=== PATIENT | female | born 1990 ===

== ENCOUNTER 2019-03-29 12:08 | Inpatient (IN) | payer BC ==
[2019-03-29] MEDS ORDERED: Ondansetron 4 MG/2 ML SDV IVPUSH ONE (12:35)
[2019-03-29] MEDS ORDERED: Sodium Chloride 0.9% 1,000 ML IV ONE ×2 (12:35→16:20)
[2019-03-29] MEDS ORDERED: Ketorolac 30 MG/ML SDV IVPUSH ONE (12:35)
--- NOTE | 2019-03-29 12:40 | EDM.PDOC ---
ED HPI GENERAL MEDICAL PROBLEM - General Chief Complaint: Fever Stated Complaint: FEVER Time Seen by Provider: 03/29/19 12:21 Source of Information: Reports: Patient History Limitations: Reports: No Limitations - History of Present Illness INITIAL COMMENTS - FREE TEXT/NARRATIVE: HISTORY AND PHYSICAL: History of present illness: Patient is a 28-year-old female presents to the ED today with concern of nausea , vomiting, and fevers since last night. Patient states she checked her temperature last night with the highest being 103 with an oral Patient states she's also had more constipation and feels like she is not able to have a full bowel movement. Patient states she still not been a few times today and has not tried to eat due to the nausea. Patient states she has a history once of having a kidney infection but her symptoms today do not feel like that. Patient denies any other health history or any other symptoms or concerns. Patient states she last took a dose of Tylenol a few hours ago. Patient denies chest pain, shortness of breath, or cough. Denies headache, neck stiff ness, change in vision, syncope, or near syncope. Denies dysuria. Has not noted any blood in urine or stool. Review of systems: As per history of present illness and below otherwise all systems reviewed and negative. Past medical history: As per history of present illness and as reviewed below otherwise noncontributory. Surgical history: As per history of present illness and as reviewed below otherwise noncontributory. Social history: See social history for further information Family history: As per history of present illness and as reviewed below otherwise noncontributory. Physical exam: General: Patient is alert, oriented, and in no acute distress. Patient sitting comfortably on exam table. HEENT: Atraumatic, normocephalic, pupils equal and reactive bilaterally, negative for conjunctival pallor or scleral icterus, mucous membranes moist, TMs normal bilaterally, throat clear, neck supple, nontender, trachea midline. No drooling or trismus noted. No meningeal signs. No hot potato voice noted. Lungs: Clear to auscultation, breath sounds equal bilaterally, chest nontender. Heart: Tachycardic. S1S2, regular rate and rhythm without overt murmur Abdomen: Soft, nondistended. Moderate pain with palpation of lower abdomen without guarding or rebound. Negative for masses or hepatosplenomegaly. Negative for costovertebral tenderness. Pelvis: Stable nontender. Genitourinary: Deferred. Rectal: Deferred. Skin: Intact, warm, dry. No lesions or rashes noted. Extremities: Atraumatic, negative for cords or calf pain. Neurovascular unremarkable. Neuro: Awake, alert, oriented. Cranial nerves II through XII unremarkable. Cerebellum unremarkable. Motor and sensory unremarkable throughout. Exam nonfocal. Notes: Dr. Morrow consulted on patient and will admit to observation. Voices understanding and is agreeable to plan of care. Denies any further questions or concerns at this time. Diagnostics: CBC, CMP, UA, chest x-ray, urine hCG, influenza, strep, abdominal pelvic CT, lactate, blood cultures x 2 Therapeutics: Saline, Zofran, Toradol, Rocephin Impression: Acute pyelonephritis Plan: 1. Admit to observation to Dr. Morrow. Definitive disposition and diagnosis as appropriate pending reevaluation and review of above. Duration: Colic low back Pain Score (Numeric/FACES): 2 - Related Data Allergies Allergy/AdvReac Type Severity Reaction Status Date / Time No Known Allergies Allergy Verified 03/29/19 12:19 Home Meds: Home Meds Albuterol Sulfate [Albuterol Sulfate Hfa] 03/29/19 [History] Social & Family History - Family History Family Medical History: Noncontributory - Tobacco Use Smoking Status *Q: Never Smoker - Recreational Drug Use Recreational Drug Use: No ED ROS GENERAL - Review of Systems Review Of Systems: ROS reveals no pertinent complaints other than HPI. ED EXAM, GENERAL - Physical Exam Exam: See Below (See dictation) Course - Vital Signs Last Recorded V/S: Last Vital Signs Temp 100.2 F 03/29/19 12:20 Pulse 137 H 03/29/19 12:20 Resp 16 03/29/19 12:20 BP 143/86 H 03/29/19 12:20 Pulse Ox 96 03/29/19 12:20 - Orders/Labs/Meds Orders: Active Orders 24 hr Category Date Time Status Admission Status [Patient Status] [ADT] Stat ADT 03/29/19 14:55 Ordered Chest 1V Frontal [CR] Stat Exams 03/29/19 12:35 Taken CULTURE BLOOD [BC] Stat Lab 03/29/19 14:05 Received CULTURE BLOOD [BC] Stat Lab 03/29/19 14:30 Received CULTURE STREP A CONFIRMATION [RM] Stat Lab 03/29/19 12:30 Results CULTURE URINE [RM] Stat Lab 03/29/19 12:20 Received LACTATE WITH REFLEX [BG] Stat Lab 03/29/19 13:00 Ordered STREP SCRN A RAPID W CULT CONF [RM] Stat Lab 03/29/19 12:30 Results Blood Culture x2 Reflex Set [OM.PC] Stat Oth 03/29/19 13:00 Ordered Labs: Laboratory Tests 03/29/19 03/29/19 03/29/19 Range/Units 12:20 12:20 12:39 WBC 22.88 H (4.0-11.0) K/uL RBC 4.85 (4.30-5.90) M/uL Hgb 14.7 (12.0-16.0) g/dL Hct 42.7 (36.0-46.0) % MCV 88.0 (80.0-98.0) fL MCH 30.3 (27.0-32.0) pg MCHC 34.4 (31.0-37.0) g/dL RDW Std Deviation 41.1 (28.0-62.0) fl RDW Coeff of Trace 13 (11.0-15.0) % Plt Count 280 (150-400) K/uL MPV 9.20 (7.40-12.00) fL Neut % (Auto) 86.7 H (48.0-80.0) % Lymph % (Auto) 3.6 L (16.0-40.0) % [place] % (Auto) 9.7 (0.0-15.0) % Eos % (Auto) 0.0 (0.0-7.0) % Baso % (Auto) 0.0 (0.0-1.5) % Neut # (Auto) 19.8 H (1.4-5.7) K/uL Lymph # (Auto) 0.8 (0.6-2.4) K/uL [place] # (Auto) 2.2 H (0.0-0.8) K/uL Eos # (Auto) 0.0 (0.0-0.7) K/uL Baso # (Auto) 0.0 (0.0-0.1) K/uL Nucleated RBC % 0.0 /100WBC Nucleated RBCs # 0 K/uL Sodium (136-145) mmol/L Potassium (3.5-5.1) mmol/L Chloride (98-107) mmol/L Carbon Dioxide (21.0-32.0) mmol/L BUN (7.0-18.0) mg/dL Creatinine (0.6-1.0) mg/dL Est Cr Clr Drug Dosing mL/min Estimated GFR (MDRD) ml/min Glucose (74-106) mg/dL Calcium (8.5-10.1) mg/dL Total Bilirubin (0.2-1.0) mg/dL AST (15-37) IU/L ALT (14-63) IU/L Alkaline Phosphatase (46-116) U/L Total Protein (6.4-8.2) g/dL Albumin (3.4-5.0) g/dL Globulin (2.6-4.0) g/dL Albumin/Globulin Ratio (0.9-1.6) Urine Color YELLOW Urine Appearance CLEAR Urine pH 7.0 (5.0-8.0) Ur Specific [place] 1.020 (1.001-1.035) Urine Protein 30 H (NEGATIVE) mg/dL Urine Glucose (UA) NEGATIVE (NEGATIVE) mg/dL Urine Ketones NEGATIVE (NEGATIVE) mg/dL Urine Occult Blood MODERATE H (NEGATIVE) Urine Nitrite NEGATIVE (NEGATIVE) Urine Bilirubin NEGATIVE (NEGATIVE) Urine Urobilinogen 0.2 (<2.0) EU/dL Ur Leukocyte Esterase TRACE H (NEGATIVE) Urine RBC 4-8 (0-2/HPF) Urine WBC 15-20 (0-5/HPF) Ur Epithelial Cells FEW (NONE-FEW) Amorphous Sediment LIGHT (NEGATIVE) Urine Bacteria 2+ H (NEGATIVE) Urine Mucus NOT SEEN (NONE-MOD) Urine HCG, Qual NEGATIVE (NEGATIVE) 03/29/19 Range/Units 12:39 WBC (4.0-11.0) K/uL RBC (4.30-5.90) M/uL Hgb (12.0-16.0) g/dL Hct (36.0-46.0) % MCV (80.0-98.0) fL MCH (27.0-32.0) pg MCHC (31.0-37.0) g/dL RDW Std Deviation (28.0-62.0) fl RDW Coeff of Trace (11.0-15.0) % Plt Count (150-400) K/uL MPV (7.40-12.00) fL Neut % (Auto) (48.0-80.0) % Lymph % (Auto) (16.0-40.0) % [place] % (Auto) (0.0-15.0) % Eos % (Auto) (0.0-7.0) % Baso % (Auto) (0.0-1.5) % Neut # (Auto) (1.4-5.7) K/uL Lymph # (Auto) (0.6-2.4) K/uL [place] # (Auto) (0.0-0.8) K/uL Eos # (Auto) (0.0-0.7) K/uL Baso # (Auto) (0.0-0.1) K/uL Nucleated RBC % /100WBC Nucleated RBCs # K/uL Sodium 135 L (136-145) mmol/L Potassium 3.5 (3.5-5.1) mmol/L Chloride 101 (98-107) mmol/L Carbon Dioxide 20.3 L (21.0-32.0) mmol/L BUN 7 (7.0-18.0) mg/dL Creatinine 0.8 (0.6-1.0) mg/dL Est Cr Clr Drug Dosing 103.63 mL/min Estimated GFR (MDRD) > 60.0 ml/min Glucose 134 H (74-106) mg/dL Calcium 9.7 (8.5-10.1) mg/dL Total Bilirubin 0.6 (0.2-1.0) mg/dL AST 20 (15-37) IU/L ALT 21 (14-63) IU/L Alkaline Phosphatase 91 (46-116) U/L Total Protein 8.2 (6.4-8.2) g/dL Albumin 3.9 (3.4-5.0) g/dL Globulin 4.3 H (2.6-4.0) g/dL Albumin/Globulin Ratio 0.9 (0.9-1.6) Urine Color Urine Appearance Urine pH (5.0-8.0) Ur Specific [place] (1.001-1.035) Urine Protein (NEGATIVE) mg/dL Urine Glucose (UA) (NEGATIVE) mg/dL Urine Ketones (NEGATIVE) mg/dL Urine Occult Blood (NEGATIVE) Urine Nitrite (NEGATIVE) Urine Bilirubin (NEGATIVE) Urine Urobilinogen (<2.0) EU/dL Ur Leukocyte Esterase (NEGATIVE) Urine RBC (0-2/HPF) Urine WBC (0-5/HPF) Ur Epithelial Cells (NONE-FEW) Amorphous Sediment (NEGATIVE) Urine Bacteria (NEGATIVE) Urine Mucus (NONE-MOD) Urine HCG, Qual (NEGATIVE) Meds: Medications Discontinued Medications Generic Name Dose Route Start Last Admin Trade Name Freq PRN Reason Stop Dose Admin Sodium Chloride 1,000 mls @ 999 mls/hr 03/29/19 12:35 03/29/19 13:11 Normal Saline IV 03/29/19 13:35 999 mls/hr BOLUS ONE Administration Ceftriaxone Sodium/Dextrose 1 50 mls @ 100 mls/hr 03/29/19 13:01 03/29/19 13: 36 gm/ Premix IV 03/29/19 13:30 100 mls/hr ONETIME ONE Administration Ketorolac Tromethamine 30 mg 03/29/19 12:35 03/29/19 13:11 Toradol IVPUSH 03/29/19 12:36 30 mg ONETIME ONE Administration Ondansetron HCl 4 mg 03/29/19 12:35 03/29/19 13:11 Zofran IVPUSH 03/29/19 12:36 Not Given ONETIME ONE Departure - Departure Time of Disposition: 14:36 Disposition: Refer to Observation Clinical Impression: Acute pyelonephritis - Discharge Information Referrals: PCP,None [Primary Care Provider] - Forms: ED Department Discharge - My Orders Last 24 Hours: My Active Orders 03/29/19 12:20 CULTURE URINE [RM] Stat 03/29/19 12:30 CULTURE STREP A CONFIRMATION [RM] Stat STREP SCRN A RAPID W CULT CONF [RM] Stat 03/29/19 12:35 Chest 1V Frontal [CR] Stat 03/29/19 13:00 LACTATE WITH REFLEX [BG] Stat Blood Culture x2 Reflex Set [OM.PC] Stat 03/29/19 14:05 CULTURE BLOOD [BC] Stat 03/29/19 14:30 CULTURE BLOOD [BC] Stat 03/29/19 14:55 Admission Status [Patient Status] [ADT] Stat - Assessment/Plan Last 24 Hours: My Active Orders 03/29/19 12:20 CULTURE URINE [RM] Stat 03/29/19 12:30 CULTURE STREP A CONFIRMATION [RM] Stat STREP SCRN A RAPID W CULT CONF [RM] Stat 03/29/19 12:35 Chest 1V Frontal [CR] Stat 03/29/19 13:00 LACTATE WITH REFLEX [BG] Stat Blood Culture x2 Reflex Set [OM.PC] Stat 03/29/19 14:05 CULTURE BLOOD [BC] Stat 03/29/19 14:30 CULTURE BLOOD [BC] Stat 03/29/19 14:55 Admission Status [Patient Status] [ADT] Stat
[2019-03-29] MEDS ORDERED: cefTRIAXone 1 GM in Premix Bag 1 BAG IV ONE (13:01)
[2019-03-29 13:14] LABS: BLOOD UREA NITROGEN,BUN 7 mg/dL (7.0-18.0); CARBON DIOXIDE,CO2 20.3 mmol/L (21.0-32.0); CHLORIDE,CL 101 mmol/L (98-107); GLUCOSE RANDOM 134 mg/dL (74-106); POTASSIUM,K 3.5 mmol/L (3.5-5.1); SODIUM,NA 135 mmol/L (136-145)
--- NOTE | 2019-03-29 14:26 | CT ---
CT abdomen and pelvis Technique: Multiple axial sections were obtained from above the dome of the diaphragm inferiorly through the pubic symphysis. Intravenous contrast and oral contrast was not utilized. Findings: Left kidney is swollen with mild surrounding inflammatory change. No ureteral stone is seen. Findings are suspicious for pyelonephritis. Other findings: Visualized lung bases show nothing acute. Noncontrast appearance of the liver and spleen appear within normal limits. Adrenal glands show no nodule. Accessory splenic tissue is noted off the medial spleen. Pancreas appears within normal limits. Gallbladder contains no calcified gallstones. Aorta shows no aneurysm. No retroperitoneal adenopathy or mesenteric abnormalities are seen. No pelvic mass or adenopathy is noted. No free fluid or inflammatory change is seen. Bone window settings were reviewed which appear within normal limits for the patient's age. Impression: 1. Swollen left kidney with mild surrounding inflammatory change suspicious for pyelonephritis. 2. No additional abnormality is appreciated on noncontrast CT study of the abdomen and pelvis. Diagnostic code #3 MTDD
--- NOTE | 2019-03-29 15:43 | PCM.HP.2 ---
H&P History of Present Illness - General Date of Service: 03/29/19 Admit Problem/Dx: Admission Diagnosis/Problem Admission Diagnosis/Problem Acute pyelonephritis Source of Information: Patient History Limitations: Reports: No Limitations - History of Present Illness Initial Comments - Free Text/Narative: Patient is a 28-year-old female presents to the ED today with c/o nausea, vomiting, and fevers since last night. Patient checked her temp last night and the max she recorded was 103. Patient took Tylenol and her fever improved but through out the nigh she felt chills and some urinary urgency and frequency along with diaphoresis. Gisselle states that she just moved to [place] from [place]. States she had infection of her kidneys in 2017 but was not admitted to hospital at that time.Patient denies chest pain, shortness of breath , or cough. Denies headache, neck stiff ness, change in vision, syncope, or near syncope. Denies dysuria. Has not noted any blood in urine or stool. In the ER patient was found to have elevated white count and was tachycardiac as well. Lactate was not elevated. IV fluids and IV antibiotics were administered. Patient underwent CT abdomen which showed findings suggestible of Acute pyelonephritics. Patient was admitted for management of Acute Pyelonephritis. .Vitals in ER: Last Vital Signs Temp 100.2 F 03/29/19 12:20 Pulse 137 H 03/29/19 12:20 Resp 16 03/29/19 12:20 BP 143/86 H 03/29/19 12:20 Pulse Ox 96 03/29/19 12:20 Meds administered in ER: Generic Name Dose Route Start Last Admin Trade Name Parth PRN Reason Stop Dose Admin Sodium Chloride 1,000 mls @ 999 mls/hr 03/29/19 12:35 03/29/19 13:11 Normal Saline IV 03/29/19 13:35 999 mls/hr BOLUS ONE Administration Ceftriaxone Sodium/Dextrose 1 50 mls @ 100 mls/hr 03/29/19 13:01 03/29/19 13: 36 gm/ Premix IV 03/29/19 13:30 100 mls/hr ONETIME ONE Administration Ketorolac Tromethamine 30 mg 03/29/19 12:35 03/29/19 13:11 Toradol IVPUSH 03/29/19 12:36 30 mg ONETIME ONE Administration Ondansetron HCl 4 mg 03/29/19 12:35 03/29/19 13:11 Zofran IVPUSH 03/29/19 12:36 Not Given ONETIME ONE Onset of Symptoms: Reports: Sudden Duration of Symptoms: Reports: Day(s): (1) Location: Reports: Abdomen Quality: Reports: Pressure Severity: Moderate Improves with: Reports: Medication Worsens with: Reports: None Associated Symptoms: Reports: Diaphoresis, Fever/Chills, Loss of Appetite, Nausea/Vomiting low back Pain Score (Numeric/FACES): 2 - Related Data Allergies/Adverse Reactions: Allergies Allergy/AdvReac Type Severity Reaction Status Date / Time No Known Allergies Allergy Verified 03/29/19 16:01 Home Medications: Home Meds Albuterol Sulfate [Albuterol Sulfate Hfa] 2 puff INH DAILY PRN 03/29/19 [History ] Acetaminophen [Tylenol] 650 mg PO Q4H PRN tablet 04/01/19 [Rx] Levofloxacin [Levaquin] 750 mg PO DAILY #6 tablet 04/01/19 [Rx] Social & Family History - Family History Family Medical History: Noncontributory - Tobacco Use Smoking Status *Q: Never Smoker - Recreational Drug Use Recreational Drug Use: No H&P Review of Systems - Review of Systems: Review Of Systems: See Below General: Reports: Fever, Chills, Malaise, Weakness, Fatigue, Night Sweats, Diaphoresis, Decreased Appetite HEENT: Reports: No Symptoms Pulmonary: Reports: No Symptoms Cardiovascular: Reports: No Symptoms Gastrointestinal: Reports: Abdominal Pain, Nausea, Vomiting. Denies: Bloody Stool, Constipation, Diarrhea, Difficulty Swallowing, Melena, Stool Incontinence Genitourinary: Reports: Dysuria, Frequency, Burning, Urgency. Denies: Hematuria , Retention, Discharge, Dysmenorrhea Musculoskeletal: Reports: No Symptoms Psychiatric: Denies: Confusion, Depression, Hallucinations Neurological: Denies: Confusion, Dizziness, Headache Hematologic/Lymphatic: Denies: Easy Bleeding, Easy Bruising Exam - Exam Exam: See Below - Vital Signs Vital Signs: Last Vital Signs Temp 37.9 C 03/29/19 12:20 Pulse 137 H 03/29/19 12:20 Resp 16 03/29/19 12:20 BP 143/86 H 03/29/19 12:20 Pulse Ox 96 03/29/19 12:20 Weight: 160 lb - Exam General: Alert, Oriented HEENT: Conjunctiva Clear Neck: Supple, Trachea Midline Lungs: Clear to Auscultation, Normal Respiratory Effort Cardiovascular: Regular Rhythm, Normal S1, Normal S2, Tachycardia GI/Abdominal Exam: Normal Bowel Sounds, Soft, Non-Tender, No Organomegaly, No Distention, No Mass Rectal (Female) Exam: Normal Exam, Normal Rectal Tone Back Exam: Normal Inspection, Full Range of Motion Extremities: Normal Inspection, Normal Range of Motion, Non-Tender, No Pedal Edema, Normal Capillary Refill Peripheral Pulses: 3+: Dorsalis Pedis (L), Dorsalis Pedis (R) Skin: Warm - Patient Data Lab Results Last 24 hrs: Laboratory Results - last 24 hr 03/29/19 03/29/19 03/29/19 Range/Units 12:20 12:20 12:39 WBC 22.88 H (4.0-11.0) K/uL RBC 4.85 (4.30-5.90) M/uL Hgb 14.7 (12.0-16.0) g/dL Hct 42.7 (36.0-46.0) % MCV 88.0 (80.0-98.0) fL MCH 30.3 (27.0-32.0) pg MCHC 34.4 (31.0-37.0) g/dL RDW Std Deviation 41.1 (28.0-62.0) fl RDW Coeff of Trace 13 (11.0-15.0) % Plt Count 280 (150-400) K/uL MPV 9.20 (7.40-12.00) fL Neut % (Auto) 86.7 H (48.0-80.0) % Lymph % (Auto) 3.6 L (16.0-40.0) % [place] % (Auto) 9.7 (0.0-15.0) % Eos % (Auto) 0.0 (0.0-7.0) % Baso % (Auto) 0.0 (0.0-1.5) % Neut # (Auto) 19.8 H (1.4-5.7) K/uL Lymph # (Auto) 0.8 (0.6-2.4) K/uL [place] # (Auto) 2.2 H (0.0-0.8) K/uL Eos # (Auto) 0.0 (0.0-0.7) K/uL Baso # (Auto) 0.0 (0.0-0.1) K/uL Nucleated RBC % 0.0 /100WBC Nucleated RBCs # 0 K/uL Lactate (0.20-2.00) mmol/L Sodium (136-145) mmol/L Potassium (3.5-5.1) mmol/L Chloride (98-107) mmol/L Carbon Dioxide (21.0-32.0) mmol/L BUN (7.0-18.0) mg/dL Creatinine (0.6-1.0) mg/dL Est Cr Clr Drug Dosing mL/min Estimated GFR (MDRD) ml/min Glucose (74-106) mg/dL Calcium (8.5-10.1) mg/dL Total Bilirubin (0.2-1.0) mg/dL AST (15-37) IU/L ALT (14-63) IU/L Alkaline Phosphatase (46-116) U/L Total Protein (6.4-8.2) g/dL Albumin (3.4-5.0) g/dL Globulin (2.6-4.0) g/dL Albumin/Globulin Ratio (0.9-1.6) Urine Color YELLOW Urine Appearance CLEAR Urine pH 7.0 (5.0-8.0) Ur Specific [place] 1.020 (1.001-1.035) Urine Protein 30 H (NEGATIVE) mg/dL Urine Glucose (UA) NEGATIVE (NEGATIVE) mg/dL Urine Ketones NEGATIVE (NEGATIVE) mg/dL Urine Occult Blood MODERATE H (NEGATIVE) Urine Nitrite NEGATIVE (NEGATIVE) Urine Bilirubin NEGATIVE (NEGATIVE) Urine Urobilinogen 0.2 (<2.0) EU/dL Ur Leukocyte Esterase TRACE H (NEGATIVE) Urine RBC 4-8 (0-2/HPF) Urine WBC 15-20 (0-5/HPF) Ur Epithelial Cells FEW (NONE-FEW) Amorphous Sediment LIGHT (NEGATIVE) Urine Bacteria 2+ H (NEGATIVE) Urine Mucus NOT SEEN (NONE-MOD) Urine HCG, Qual NEGATIVE (NEGATIVE) 03/29/19 03/29/19 Range/Units 12:39 15:06 WBC (4.0-11.0) K/uL RBC (4.30-5.90) M/uL Hgb (12.0-16.0) g/dL Hct (36.0-46.0) % MCV (80.0-98.0) fL MCH (27.0-32.0) pg MCHC (31.0-37.0) g/dL RDW Std Deviation (28.0-62.0) fl RDW Coeff of Trace (11.0-15.0) % Plt Count (150-400) K/uL MPV (7.40-12.00) fL Neut % (Auto) (48.0-80.0) % Lymph % (Auto) (16.0-40.0) % [place] % (Auto) (0.0-15.0) % Eos % (Auto) (0.0-7.0) % Baso % (Auto) (0.0-1.5) % Neut # (Auto) (1.4-5.7) K/uL Lymph # (Auto) (0.6-2.4) K/uL [place] # (Auto) (0.0-0.8) K/uL Eos # (Auto) (0.0-0.7) K/uL Baso # (Auto) (0.0-0.1) K/uL Nucleated RBC % /100WBC Nucleated RBCs # K/uL Lactate 0.7 (0.20-2.00) mmol/L Sodium 135 L (136-145) mmol/L Potassium 3.5 (3.5-5.1) mmol/L Chloride 101 (98-107) mmol/L Carbon Dioxide 20.3 L (21.0-32.0) mmol/L BUN 7 (7.0-18.0) mg/dL Creatinine 0.8 (0.6-1.0) mg/dL Est Cr Clr Drug Dosing 103.63 mL/min Estimated GFR (MDRD) > 60.0 ml/min Glucose 134 H (74-106) mg/dL Calcium 9.7 (8.5-10.1) mg/dL Total Bilirubin 0.6 (0.2-1.0) mg/dL AST 20 (15-37) IU/L ALT 21 (14-63) IU/L Alkaline Phosphatase 91 (46-116) U/L Total Protein 8.2 (6.4-8.2) g/dL Albumin 3.9 (3.4-5.0) g/dL Globulin 4.3 H (2.6-4.0) g/dL Albumin/Globulin Ratio 0.9 (0.9-1.6) Urine Color Urine Appearance Urine pH (5.0-8.0) Ur Specific [place] (1.001-1.035) Urine Protein (NEGATIVE) mg/dL Urine Glucose (UA) (NEGATIVE) mg/dL Urine Ketones (NEGATIVE) mg/dL Urine Occult Blood (NEGATIVE) Urine Nitrite (NEGATIVE) Urine Bilirubin (NEGATIVE) Urine Urobilinogen (<2.0) EU/dL Ur Leukocyte Esterase (NEGATIVE) Urine RBC (0-2/HPF) Urine WBC (0-5/HPF) Ur Epithelial Cells (NONE-FEW) Amorphous Sediment (NEGATIVE) Urine Bacteria (NEGATIVE) Urine Mucus (NONE-MOD) Urine HCG, Qual (NEGATIVE) Result Diagrams: 04/01/19 05:59 04/01/19 05:59 Isaias Results Last 24 hrs: Microbiology 03/29/19 12:30 Influenza Type A Antigen Screen - Final Nasopharyngeal Swab NEGATIVE INFLUENZA A VIRUS AG REFERENCE RANGE: NEGATIVE Influenza Type B Antigen Screen - Final NEGATIVE INFLUENZA B VIRUS AG REFERENCE RANGE: NEGATIVE 03/29/19 12:30 Group A Streptococcus Rapid Screen - Final Throat NEGATIVE STREP A SCREEN REFERENCE RANGE: NEGATIVE *Q Meaningful Use (ADM) - VTE Risk Assess *Q Each Risk Factor Represents 2 Points: None Total Score 2 Point Risk Factors: 0 - Problem List (1) Sepsis SNOMED Code(s): 66755387 ICD Code: A41.9 - SEPSIS, UNSPECIFIED ORGANISM Status: Acute Current Visit: Yes (2) Acute pyelonephritis SNOMED Code(s): 66065073 ICD Code: N10 - ACUTE PYELONEPHRITIS Status: Acute Current Visit: Yes Problem List Initiated/Reviewed/Updated: Yes Orders Last 24hrs: Active Orders 24 hr Category Date Time Status Admission Status [Patient Status] [ADT] Stat ADT 03/29/19 14:55 Active Chest 1V Frontal [CR] Stat Exams 03/29/19 12:35 Taken CULTURE BLOOD [BC] Stat Lab 03/29/19 14:05 Received CULTURE BLOOD [BC] Stat Lab 03/29/19 14:30 Received CULTURE STREP A CONFIRMATION [RM] Stat Lab 03/29/19 12:30 Results CULTURE URINE [RM] Stat Lab 03/29/19 12:20 Received STREP SCRN A RAPID W CULT CONF [RM] Stat Lab 03/29/19 12:30 Results Blood Culture x2 Reflex Set [OM.PC] Stat Oth 03/29/19 13:00 Ordered Assessment/Plan Comment:: 1) Acute pyelonephritis: Patient comes in with c/o N/V, Urinary symtpons , fever chills Was found to have sepsis with elevated white count , tachycardic CT abdomen was positive for Acute pyelonephritics Was started on Ceftriaxone Urine and Blood cultures are pending Will cont IV abx, IV fluids f/u on UC sensitivities Clear liquid for now, advance as tolerated Tylenol for pain DVT ppx with heparin Anticipate 2 midnight stays
[2019-03-29] MEDS ORDERED: Ondansetron 4 MG Tab.DIS PO PRN (15:53)
[2019-03-29] MEDS ORDERED: Albuterol/Ipratropium 3.0-0.5 MG/3 ML Neb Soln NEB PRN (15:53)
[2019-03-29] MEDS: Sodium Chloride 0.9% 1,000 ML IV SCH (16:12)
[2019-03-29] MEDS: Heparin Sodium 5,000 Units/ML Vial SUBCUT SCH ×2 (16:12→23:42)
[2019-03-29] MEDS: Acetaminophen 325 MG Tab PO PRN (16:12)
--- NOTE | 2019-03-29 17:06 | CR ---
Chest: Portable view of the chest was obtained. Comparison: No previous chest x-ray. Heart size and mediastinum are normal. Lungs are clear. Bony structures are unremarkable. Impression: Nothing acute is seen on portable chest x-ray. Diagnostic code #1 MTDD
[2019-03-29] MEDS: Ondansetron 4 MG/2 ML SDV IVPUSH PRN (22:04)
[2019-03-30] MEDS: Acetaminophen 325 MG Tab PO PRN ×3 (00:09→20:43)
[2019-03-30] MEDS: Sodium Chloride 0.9% 1,000 ML IV SCH ×3 (01:36→15:56)
[2019-03-30] MEDS ORDERED: Sodium Chloride 0.9% 500 ML IV SCH (04:40)
[2019-03-30 06:21] LABS: BLOOD UREA NITROGEN,BUN 3 mg/dL (7.0-18.0); CARBON DIOXIDE,CO2 22.7 mmol/L (21.0-32.0); CHLORIDE,CL 110 mmol/L (98-107); GLUCOSE RANDOM 113 mg/dL (74-106); POTASSIUM,K 4.1 mmol/L (3.5-5.1); SODIUM,NA 143 mmol/L (136-145)
[2019-03-30] MEDS: Heparin Sodium 5,000 Units/ML Vial SUBCUT SCH ×3 (08:18→23:30)
[2019-03-30] MEDS: Ondansetron 4 MG/2 ML SDV IVPUSH PRN ×2 (08:24→20:48)
[2019-03-30] MEDS ORDERED: Phosphorus #1 250 MG Tab PO ONE (08:53)
[2019-03-30] MEDS ORDERED: Magnesium Sulfate/Water 2 GM in Premix Bag 1 BAG IV ONE (08:53)
[2019-03-30] MEDS ORDERED: Sodium Chloride 0.9% 1,000 ML IV ONE (08:59)
[2019-03-30 09:45] LABS: HEMOGLOBIN A1C 5.4 % (4.5-6.2)
[2019-03-30] MEDS: cefTRIAXone 1 GM in Premix Bag 1 BAG IV SCH (10:56)
--- NOTE | 2019-03-30 11:49 | PCM.PN ---
- General Info Date of Service: 03/30/19 Functional Status: Reports: Pain Controlled, Tolerating Diet - Review of Systems General: Reports: Fever, Malaise HEENT: Denies: Headaches, Rhinitis Pulmonary: Denies: Shortness of Breath, Pleuritic Chest Pain Cardiovascular: Denies: Chest Pain, Palpitations Gastrointestinal: Denies: Abdominal Pain, Constipation, Diarrhea, Difficulty Swallowing, Hematochezia Genitourinary: Denies: Dysuria, Frequency, Burning, Urgency Skin: Denies: Cyanosis, Jaundice, Mottled Neurological: Denies: Confusion, Dizziness, Headache Psychiatric: Denies: Depression, Mood Lability - Patient Data Vitals - Most Recent: Last Vital Signs Temp 36.0 C 03/30/19 11:27 Pulse 134 H 03/30/19 07:00 Resp 18 03/30/19 07:00 BP 122/76 03/30/19 07:00 Pulse Ox 97 03/30/19 07:00 Weight - Most Recent: 160 lb I&O - Last 24 Hours: Intake & Output 03/29/19 03/30/19 03/30/19 22:59 06:59 14:59 Intake Total 4700 100 Output Total 500 1150 Balance -500 3550 100 Lab Results Last 24 Hours: Laboratory Results - last 24 hr 03/29/19 03/29/19 03/29/19 Range/Units 12:20 12:20 12:39 WBC 22.88 H (4.0-11.0) K/uL RBC 4.85 (4.30-5.90) M/uL Hgb 14.7 (12.0-16.0) g/dL Hct 42.7 (36.0-46.0) % MCV 88.0 (80.0-98.0) fL MCH 30.3 (27.0-32.0) pg MCHC 34.4 (31.0-37.0) g/dL RDW Std Deviation 41.1 (28.0-62.0) fl RDW Coeff of Trace 13 (11.0-15.0) % Plt Count 280 (150-400) K/uL MPV 9.20 (7.40-12.00) fL Neut % (Auto) 86.7 H (48.0-80.0) % Lymph % (Auto) 3.6 L (16.0-40.0) % [place] % (Auto) 9.7 (0.0-15.0) % Eos % (Auto) 0.0 (0.0-7.0) % Baso % (Auto) 0.0 (0.0-1.5) % Neut # (Auto) 19.8 H (1.4-5.7) K/uL Lymph # (Auto) 0.8 (0.6-2.4) K/uL [place] # (Auto) 2.2 H (0.0-0.8) K/uL Eos # (Auto) 0.0 (0.0-0.7) K/uL Baso # (Auto) 0.0 (0.0-0.1) K/uL Add Manual Diff Neutrophils % (Manual) (48.0-80.0) % Lymphocytes % (Manual) (16.0-40.0) % Monocytes % (Manual) (0.0-15.0) % Nucleated RBC % 0.0 /100WBC Absolute Seg Neuts (1.4-5.7) Lymphocytes # (Manual) (0.6-2.4) Monocytes # (Manual) (0.0-0.8) Nucleated RBCs # 0 K/uL Lactate (0.20-2.00) mmol/L Sodium (136-145) mmol/L Potassium (3.5-5.1) mmol/L Chloride (98-107) mmol/L Carbon Dioxide (21.0-32.0) mmol/L BUN (7.0-18.0) mg/dL Creatinine (0.6-1.0) mg/dL Est Cr Clr Drug Dosing mL/min Estimated GFR (MDRD) ml/min Glucose (74-106) mg/dL POC Glucose (60-110) mg/dL Hemoglobin A1c (4.5-6.2) % Calcium (8.5-10.1) mg/dL Phosphorus (2.6-4.7) mg/dL Magnesium (1.8-2.4) mg/dL Total Bilirubin (0.2-1.0) mg/dL AST (15-37) IU/L ALT (14-63) IU/L Alkaline Phosphatase (46-116) U/L Total Protein (6.4-8.2) g/dL Albumin (3.4-5.0) g/dL Globulin (2.6-4.0) g/dL Albumin/Globulin Ratio (0.9-1.6) Urine Color YELLOW Urine Appearance CLEAR Urine pH 7.0 (5.0-8.0) Ur Specific [place] 1.020 (1.001-1.035) Urine Protein 30 H (NEGATIVE) mg/dL Urine Glucose (UA) NEGATIVE (NEGATIVE) mg/dL Urine Ketones NEGATIVE (NEGATIVE) mg/dL Urine Occult Blood MODERATE H (NEGATIVE) Urine Nitrite NEGATIVE (NEGATIVE) Urine Bilirubin NEGATIVE (NEGATIVE) Urine Urobilinogen 0.2 (<2.0) EU/dL Ur Leukocyte Esterase TRACE H (NEGATIVE) Urine RBC 4-8 (0-2/HPF) Urine WBC 15-20 (0-5/HPF) Ur Epithelial Cells FEW (NONE-FEW) Amorphous Sediment LIGHT (NEGATIVE) Urine Bacteria 2+ H (NEGATIVE) Urine Mucus NOT SEEN (NONE-MOD) Urine HCG, Qual NEGATIVE (NEGATIVE) 03/29/19 03/29/19 03/29/19 Range/Units 12:39 15:06 16:37 WBC (4.0-11.0) K/uL RBC (4.30-5.90) M/uL Hgb (12.0-16.0) g/dL Hct (36.0-46.0) % MCV (80.0-98.0) fL MCH (27.0-32.0) pg MCHC (31.0-37.0) g/dL RDW Std Deviation (28.0-62.0) fl RDW Coeff of Trace (11.0-15.0) % Plt Count (150-400) K/uL MPV (7.40-12.00) fL Neut % (Auto) (48.0-80.0) % Lymph % (Auto) (16.0-40.0) % [place] % (Auto) (0.0-15.0) % Eos % (Auto) (0.0-7.0) % Baso % (Auto) (0.0-1.5) % Neut # (Auto) (1.4-5.7) K/uL Lymph # (Auto) (0.6-2.4) K/uL [place] # (Auto) (0.0-0.8) K/uL Eos # (Auto) (0.0-0.7) K/uL Baso # (Auto) (0.0-0.1) K/uL Add Manual Diff Neutrophils % (Manual) (48.0-80.0) % Lymphocytes % (Manual) (16.0-40.0) % Monocytes % (Manual) (0.0-15.0) % Nucleated RBC % /100WBC Absolute Seg Neuts (1.4-5.7) Lymphocytes # (Manual) (0.6-2.4) Monocytes # (Manual) (0.0-0.8) Nucleated RBCs # K/uL Lactate 0.7 (0.20-2.00) mmol/L Sodium 135 L (136-145) mmol/L Potassium 3.5 (3.5-5.1) mmol/L Chloride 101 (98-107) mmol/L Carbon Dioxide 20.3 L (21.0-32.0) mmol/L BUN 7 (7.0-18.0) mg/dL Creatinine 0.8 (0.6-1.0) mg/dL Est Cr Clr Drug Dosing 103.63 mL/min Estimated GFR (MDRD) > 60.0 ml/min Glucose 134 H (74-106) mg/dL POC Glucose 96 (60-110) mg/dL Hemoglobin A1c (4.5-6.2) % Calcium 9.7 (8.5-10.1) mg/dL Phosphorus (2.6-4.7) mg/dL Magnesium (1.8-2.4) mg/dL Total Bilirubin 0.6 (0.2-1.0) mg/dL AST 20 (15-37) IU/L ALT 21 (14-63) IU/L Alkaline Phosphatase 91 (46-116) U/L Total Protein 8.2 (6.4-8.2) g/dL Albumin 3.9 (3.4-5.0) g/dL Globulin 4.3 H (2.6-4.0) g/dL Albumin/Globulin Ratio 0.9 (0.9-1.6) Urine Color Urine Appearance Urine pH (5.0-8.0) Ur Specific [place] (1.001-1.035) Urine Protein (NEGATIVE) mg/dL Urine Glucose (UA) (NEGATIVE) mg/dL Urine Ketones (NEGATIVE) mg/dL Urine Occult Blood (NEGATIVE) Urine Nitrite (NEGATIVE) Urine Bilirubin (NEGATIVE) Urine Urobilinogen (<2.0) EU/dL Ur Leukocyte Esterase (NEGATIVE) Urine RBC (0-2/HPF) Urine WBC (0-5/HPF) Ur Epithelial Cells (NONE-FEW) Amorphous Sediment (NEGATIVE) Urine Bacteria (NEGATIVE) Urine Mucus (NONE-MOD) Urine HCG, Qual (NEGATIVE) 03/30/19 03/30/19 03/30/19 Range/Units 05:51 05:51 05:51 WBC 19.39 H (4.0-11.0) K/uL RBC 3.92 L (4.30-5.90) M/uL Hgb 11.7 L (12.0-16.0) g/dL Hct 35.4 L (36.0-46.0) % MCV 90.3 (80.0-98.0) fL MCH 29.8 (27.0-32.0) pg MCHC 33.1 (31.0-37.0) g/dL RDW Std Deviation 43.5 (28.0-62.0) fl RDW Coeff of Trace 13 (11.0-15.0) % Plt Count 207 (150-400) K/uL MPV 8.70 (7.40-12.00) fL Neut % (Auto) (48.0-80.0) % Lymph % (Auto) (16.0-40.0) % [place] % (Auto) (0.0-15.0) % Eos % (Auto) (0.0-7.0) % Baso % (Auto) (0.0-1.5) % Neut # (Auto) (1.4-5.7) K/uL Lymph # (Auto) (0.6-2.4) K/uL [place] # (Auto) (0.0-0.8) K/uL Eos # (Auto) (0.0-0.7) K/uL Baso # (Auto) (0.0-0.1) K/uL Add Manual Diff YES Neutrophils % (Manual) 91 H (48.0-80.0) % Lymphocytes % (Manual) 7 L (16.0-40.0) % Monocytes % (Manual) 2 (0.0-15.0) % Nucleated RBC % 0.0 /100WBC Absolute Seg Neuts 17.6 H (1.4-5.7) Lymphocytes # (Manual) 1.4 (0.6-2.4) Monocytes # (Manual) 0.4 (0.0-0.8) Nucleated RBCs # 0 K/uL Lactate (0.20-2.00) mmol/L Sodium 143 (136-145) mmol/L Potassium 4.1 (3.5-5.1) mmol/L Chloride 110 H (98-107) mmol/L Carbon Dioxide 22.7 (21.0-32.0) mmol/L BUN 3 L (7.0-18.0) mg/dL Creatinine 0.7 (0.6-1.0) mg/dL Est Cr Clr Drug Dosing 118.43 mL/min Estimated GFR (MDRD) > 60.0 ml/min Glucose 113 H (74-106) mg/dL POC Glucose (60-110) mg/dL Hemoglobin A1c 5.4 (4.5-6.2) % Calcium 7.4 L (8.5-10.1) mg/dL Phosphorus 2.0 L (2.6-4.7) mg/dL Magnesium 1.6 L (1.8-2.4) mg/dL Total Bilirubin (0.2-1.0) mg/dL AST (15-37) IU/L ALT (14-63) IU/L Alkaline Phosphatase (46-116) U/L Total Protein (6.4-8.2) g/dL Albumin (3.4-5.0) g/dL Globulin (2.6-4.0) g/dL Albumin/Globulin Ratio (0.9-1.6) Urine Color Urine Appearance Urine pH (5.0-8.0) Ur Specific [place] (1.001-1.035) Urine Protein (NEGATIVE) mg/dL Urine Glucose (UA) (NEGATIVE) mg/dL Urine Ketones (NEGATIVE) mg/dL Urine Occult Blood (NEGATIVE) Urine Nitrite (NEGATIVE) Urine Bilirubin (NEGATIVE) Urine Urobilinogen (<2.0) EU/dL Ur Leukocyte Esterase (NEGATIVE) Urine RBC (0-2/HPF) Urine WBC (0-5/HPF) Ur Epithelial Cells (NONE-FEW) Amorphous Sediment (NEGATIVE) Urine Bacteria (NEGATIVE) Urine Mucus (NONE-MOD) Urine HCG, Qual (NEGATIVE) 03/30/19 Range/Units 06:07 WBC (4.0-11.0) K/uL RBC (4.30-5.90) M/uL Hgb (12.0-16.0) g/dL Hct (36.0-46.0) % MCV (80.0-98.0) fL MCH (27.0-32.0) pg MCHC (31.0-37.0) g/dL RDW Std Deviation (28.0-62.0) fl RDW Coeff of Trace (11.0-15.0) % Plt Count (150-400) K/uL MPV (7.40-12.00) fL Neut % (Auto) (48.0-80.0) % Lymph % (Auto) (16.0-40.0) % [place] % (Auto) (0.0-15.0) % Eos % (Auto) (0.0-7.0) % Baso % (Auto) (0.0-1.5) % Neut # (Auto) (1.4-5.7) K/uL Lymph # (Auto) (0.6-2.4) K/uL [place] # (Auto) (0.0-0.8) K/uL Eos # (Auto) (0.0-0.7) K/uL Baso # (Auto) (0.0-0.1) K/uL Add Manual Diff Neutrophils % (Manual) (48.0-80.0) % Lymphocytes % (Manual) (16.0-40.0) % Monocytes % (Manual) (0.0-15.0) % Nucleated RBC % /100WBC Absolute Seg Neuts (1.4-5.7) Lymphocytes # (Manual) (0.6-2.4) Monocytes # (Manual) (0.0-0.8) Nucleated RBCs # K/uL Lactate (0.20-2.00) mmol/L Sodium (136-145) mmol/L Potassium (3.5-5.1) mmol/L Chloride (98-107) mmol/L Carbon Dioxide (21.0-32.0) mmol/L BUN (7.0-18.0) mg/dL Creatinine (0.6-1.0) mg/dL Est Cr Clr Drug Dosing mL/min Estimated GFR (MDRD) ml/min Glucose (74-106) mg/dL POC Glucose 83 (60-110) mg/dL Hemoglobin A1c (4.5-6.2) % Calcium (8.5-10.1) mg/dL Phosphorus (2.6-4.7) mg/dL Magnesium (1.8-2.4) mg/dL Total Bilirubin (0.2-1.0) mg/dL AST (15-37) IU/L ALT (14-63) IU/L Alkaline Phosphatase (46-116) U/L Total Protein (6.4-8.2) g/dL Albumin (3.4-5.0) g/dL Globulin (2.6-4.0) g/dL Albumin/Globulin Ratio (0.9-1.6) Urine Color Urine Appearance Urine pH (5.0-8.0) Ur Specific [place] (1.001-1.035) Urine Protein (NEGATIVE) mg/dL Urine Glucose (UA) (NEGATIVE) mg/dL Urine Ketones (NEGATIVE) mg/dL Urine Occult Blood (NEGATIVE) Urine Nitrite (NEGATIVE) Urine Bilirubin (NEGATIVE) Urine Urobilinogen (<2.0) EU/dL Ur Leukocyte Esterase (NEGATIVE) Urine RBC (0-2/HPF) Urine WBC (0-5/HPF) Ur Epithelial Cells (NONE-FEW) Amorphous Sediment (NEGATIVE) Urine Bacteria (NEGATIVE) Urine Mucus (NONE-MOD) Urine HCG, Qual (NEGATIVE) Isaias Results Last 24 Hours: Microbiology 03/29/19 12:30 Influenza Type A Antigen Screen - Final Nasopharyngeal Swab NEGATIVE INFLUENZA A VIRUS AG REFERENCE RANGE: NEGATIVE Influenza Type B Antigen Screen - Final NEGATIVE INFLUENZA B VIRUS AG REFERENCE RANGE: NEGATIVE 03/29/19 12:30 Group A Streptococcus Rapid Screen - Final Throat NEGATIVE STREP A SCREEN REFERENCE RANGE: NEGATIVE Med Orders - Current: Current Medications Acetaminophen (Tylenol) 650 mg PO Q4H PRN PRN Reason: Pain (Mild 1-3)/fever Last Admin: 03/30/19 07:35 Dose: 650 mg Albuterol/Ipratropium (Duoneb 3.0-0.5 Mg/3 Ml) 3 ml NEB Q4HRRT PRN PRN Reason: Shortness Of Breath/wheezing Heparin Sodium (Porcine) (Heparin Sodium) 5,[address] [facility] Last Admin: 03/30/19 08:18 Dose: 5,000 units Ceftriaxone Sodium/Dextrose 1 (gm/ Premix) 50 mls @ 100 mls/hr IV Q24H [facility] Last Admin: 03/30/19 10:56 Dose: 100 mls/hr Sodium Chloride (Normal Saline) 500 mls @ 999 [facility] Last Admin: 03/30/19 04:53 Dose: 999 mls/hr Sodium Chloride (Normal Saline) 1,000 mls @ 125 [facility]ls[facility] Last Admin: 03/30/19 05:30 Dose: 125 mls/hr Ondansetron HCl (Zofran) 4 mg IVPUSH Q6H PRN PRN Reason: Nausea/Vomiting Last Admin: 03/30/19 08:24 Dose: 4 mg Discontinued Medications Sodium Chloride (Normal Saline) 1,000 mls @ 999 mls/hr IV BOLUS ONE Stop: 03/29/19 13:35 Last Admin: 03/29/19 13:11 Dose: 999 mls/hr Ceftriaxone Sodium/Dextrose 1 (gm/ Premix) 50 mls @ 100 mls/hr IV ONETIME ONE Stop: 03/29/19 13:30 Last Admin: 03/29/19 13:36 Dose: 100 mls/hr Sodium Chloride (Normal Saline) 1,000 mls @ 125 [facility] Last Admin: 03/30/19 01:36 Dose: 125 mls/hr Sodium Chloride (Normal Saline) 1,000 mls @ 999 mls/hr IV .BOLUS ONE Stop: 03/29/19 17:20 Last Admin: 03/29/19 16:39 Dose: 999 mls/hr Magnesium Sulfate 2 gm/ Premix 50 mls @ 50 mls/hr IV ONETIME ONE Stop: 03/30/19 09:52 Last Admin: 03/30/19 09:47 Dose: 50 mls/hr Sodium Chloride (Normal Saline) 1,000 mls @ 999 mls/hr IV .BOLUS ONE Stop: 03/30/19 09:59 Last Admin: 03/30/19 10:37 Dose: 999 mls/hr Ketorolac Tromethamine (Toradol) 30 mg IVPUSH ONETIME ONE Stop: 03/29/19 12:36 Last Admin: 03/29/19 13:11 Dose: 30 mg Ondansetron HCl (Zofran) 4 mg IVPUSH ONETIME ONE Stop: 03/29/19 12:36 Last Admin: 03/29/19 13:11 Dose: Not Given Ondansetron HCl (Zofran Odt) 4 mg PO Q6H PRN PRN Reason: nausea, able to take PO Sodium Phosphate (Neutra-Phos) 250 mg PO ONETIME ONE Stop: 03/30/19 08:54 Last Admin: 03/30/19 09:59 Dose: 250 mg - Exam General: Alert, Oriented, Cooperative HEENT: Pupils Equal Neck: Supple Lungs: Clear to Auscultation, Normal Respiratory Effort Cardiovascular: Regular Rate, Regular Rhythm GI/Abdominal Exam: Normal Bowel Sounds, Soft, Non-Tender, No Distention, No Mass Back Exam: Normal Inspection, Full Range of Motion. No: CVA Tenderness (L), CVA Tenderness (R) Extremities: Normal Inspection, Normal Range of Motion Peripheral Pulses: 3+: Posterior Tibial (R), Dorsalis Pedis (L) Neurological: No New Focal Deficit Psy/Mental Status: Alert, Normal Affect, Normal Mood - Problem List & Annotations (1) Sepsis SNOMED Code(s): 22514152 Code(s): A41.9 - SEPSIS, UNSPECIFIED ORGANISM Status: Acute Current Visit : Yes (2) Acute pyelonephritis SNOMED Code(s): 82758282 Code(s): N10 - ACUTE PYELONEPHRITIS Status: Acute Current Visit: Yes - Problem List Review Problem List Initiated/Reviewed/Updated: Yes - My Orders Last 24 Hours: My Active Orders 03/29/19 15:53 Patient Status [ADT] Routine Ambulate [RC] ASDIRECTED Blood Glucose Check, Bedside [RC] DAILY Oxygen Therapy [RC] PRN VTE/DVT Education [RC] PER UNIT ROUTINE Vital Signs [RC] Q4H Acetaminophen [Tylenol] 650 mg PO Q4H PRN Albuterol/Ipratropium [DuoNeb 3.0-0.5 MG/3 ML] 3 ml NEB Q4HRRT PRN Resuscitation Status Routine 03/29/19 15:59 Pulse Oximetry [RC] PRN 03/29/19 16:00 Heparin Sodium 5,000 units SUBCUT Q8H 03/29/19 16:04 RT Aerosol Therapy [RC] ASDIRECTED 03/29/19 21:51 Ondansetron [Zofran] 4 mg IVPUSH Q6H PRN 03/30/19 04:40 Sodium Chloride 0.9% [Normal Saline] 500 ml IV ASDIRECTED 03/30/19 05:15 Sodium Chloride 0.9% [Normal Saline] 1,000 ml IV ASDIRECTED 03/30/19 07:00 EKG 12 Lead [EKG Documentation Completion] [RC] ROUTINE 03/30/19 10:00 cefTRIAXone [Rocephin in Dextrose,Iso-Osm 1 GM/50 ML] 1 gm Premix Bag 1 bag IV Q24H 03/30/19 Breakfast Clear Liquid Diet [DIET] - Plan Plan:: 1) Acute pyelonephritis: Patient comes in with c/o N/V, Urinary symtpons , fever chills Was found to have sepsis with elevated white count , tachycardic CT abdomen was positive for Acute pyelonephritics Was started on Ceftriaxone Urine and Blood cultures are pending Will cont IV abx, IV fluids f/u on UC sensitivities Clear liquid for now, advance as tolerated Tylenol for pain DVT ppx with heparin Anticipate 2 midnight stays
[2019-03-31] MEDS: Sodium Chloride 0.9% 1,000 ML IV SCH ×3 (00:20→16:30)
[2019-03-31] MEDS: Ondansetron 4 MG/2 ML SDV IVPUSH PRN (04:00)
[2019-03-31 06:38] LABS: BLOOD UREA NITROGEN,BUN 3 mg/dL (7.0-18.0); CARBON DIOXIDE,CO2 21.8 mmol/L (21.0-32.0); CHLORIDE,CL 108 mmol/L (98-107); GLUCOSE RANDOM 113 mg/dL (74-106); POTASSIUM,K 3.3 mmol/L (3.5-5.1); SODIUM,NA 141 mmol/L (136-145)
[2019-03-31] MEDS: Heparin Sodium 5,000 Units/ML Vial SUBCUT SCH ×3 (07:50→23:29)
[2019-03-31] MEDS: Acetaminophen 325 MG Tab PO PRN ×3 (07:50→23:35)
--- NOTE | 2019-03-31 08:05 | PCM.PN ---
- General Info Date of Service: 03/31/19 Admission Dx/Problem (Free Text): Admission Diagnosis/Problem Admission Diagnosis/Problem Acute pyelonephritis Subjective Update: Feeling improved today, no concerns. Eager for discharge home. - Review of Systems General: Reports: No Symptoms. Denies: Fever, Weakness Cardiovascular: Reports: No Symptoms. Denies: Chest Pain Gastrointestinal: Reports: Diarrhea. Denies: Abdominal Pain, Nausea, Vomiting Genitourinary: Reports: No Symptoms Skin: Reports: No Symptoms Neurological: Reports: No Symptoms Psychiatric: Reports: No Symptoms - Patient Data Vitals - Most Recent: Last Vital Signs Temp 98 F 03/31/19 07:39 Pulse 96 03/31/19 07:39 Resp 20 03/31/19 07:39 BP 134/87 03/31/19 07:39 Pulse Ox 98 03/31/19 07:39 Weight - Most Recent: 72.575 kg I&O - Last 24 Hours: Intake & Output 03/30/19 03/31/19 03/31/19 22:59 06:59 14:59 Intake Total 4200 3115 Output Total 3600 1650 Balance 600 1465 Lab Results Last 24 Hours: Laboratory Results - last 24 hr 03/30/19 03/31/19 03/31/19 Range/Units 05:51 06:00 06:00 WBC 14.82 H (4.0-11.0) K/uL RBC 3.64 L (4.30-5.90) M/uL Hgb 10.8 L (12.0-16.0) g/dL Hct 32.3 L (36.0-46.0) % MCV 88.7 (80.0-98.0) fL MCH 29.7 (27.0-32.0) pg MCHC 33.4 (31.0-37.0) g/dL RDW Std Deviation 42.9 (28.0-62.0) fl RDW Coeff of Trace 13 (11.0-15.0) % Plt Count 196 (150-400) K/uL MPV 9.00 (7.40-12.00) fL Add Manual Diff YES Neutrophils % (Manual) 75 (48.0-80.0) % Band Neutrophils % 15 % Lymphocytes % (Manual) 8 L (16.0-40.0) % Monocytes % (Manual) 2 (0.0-15.0) % Nucleated RBC % 0.0 /100WBC Absolute Seg Neuts 11.1 H (1.4-5.7) Band Neutrophils # 2.2 Lymphocytes # (Manual) 1.2 (0.6-2.4) Monocytes # (Manual) 0.3 (0.0-0.8) Nucleated RBCs # 0 K/uL Sodium 141 (136-145) mmol/L Potassium 3.3 L (3.5-5.1) mmol/L Chloride 108 H (98-107) mmol/L Carbon Dioxide 21.8 (21.0-32.0) mmol/L BUN 3 L (7.0-18.0) mg/dL Creatinine 0.5 L (0.6-1.0) mg/dL Est Cr Clr Drug Dosing 165.81 mL/min Estimated GFR (MDRD) > 60.0 ml/min Glucose 113 H (74-106) mg/dL Hemoglobin A1c 5.4 (4.5-6.2) % Calcium 7.7 L (8.5-10.1) mg/dL Phosphorus 0.6 L (2.6-4.7) mg/dL Magnesium 2.0 (1.8-2.4) mg/dL Isaias Results Last 24 Hours: Microbiology 03/29/19 14:30 Aerobic Blood Culture - Preliminary Blood - Venous - Lab Draw NO GROWTH AFTER 1 DAY Anaerobic Blood Culture - Preliminary NO GROWTH AFTER 1 DAY 03/29/19 14:05 Aerobic Blood Culture - Preliminary Blood - Venous NO GROWTH AFTER 1 DAY Anaerobic Blood Culture - Preliminary NO GROWTH AFTER 1 DAY Med Orders - Current: Current Medications Acetaminophen (Tylenol) 650 mg PO Q4H PRN PRN Reason: Pain (Mild 1-3)/fever Last Admin: 03/31/19 07:50 Dose: 650 mg Albuterol/Ipratropium (Duoneb 3.0-0.5 Mg/3 Ml) 3 ml NEB Q4HRRT PRN PRN Reason: Shortness Of Breath/wheezing Heparin Sodium (Porcine) (Heparin Sodium) 5,000 units SUBCUT Q8H [facility] Last Admin: 03/31/19 07:50 Dose: 5,000 units Ceftriaxone Sodium/Dextrose 1 (gm/ Premix) 50 mls @ 100 mls/hr IV Q24H [facility] Last Admin: 03/30/19 10:56 Dose: 100 mls/hr Sodium Chloride (Normal Saline) 1,000 mls @ 125 [facility] Last Admin: 03/31/19 07:53 Dose: 125 mls/hr Ondansetron HCl (Zofran) 4 mg IVPUSH Q6H PRN PRN Reason: Nausea/Vomiting Last Admin: 03/31/19 04:00 Dose: 4 mg Potassium Chloride (Klor-Con M20) 40 meq PO BID@0900,1200 [facility] Stop: 03/31/19 12:01 Sodium Phosphate (Neutra-Phos) 250 mg PO QID [facility] Discontinued Medications Sodium Chloride (Normal Saline) 1,000 mls @ 999 mls/hr IV BOLUS ONE Stop: 03/29/19 13:35 Last Admin: 03/29/19 13:11 Dose: 999 mls/hr Ceftriaxone Sodium/Dextrose 1 (gm/ Premix) 50 mls @ 100 mls/hr IV ONETIME ONE Stop: 03/29/19 13:30 Last Admin: 03/29/19 13:36 Dose: 100 mls/hr Sodium Chloride (Normal Saline) 1,000 mls @ 125 [facility]ls[facility] Last Admin: 03/30/19 01:36 Dose: 125 mls/hr Sodium Chloride (Normal Saline) 1,000 mls @ 999 mls/hr IV .BOLUS ONE Stop: 03/29/19 17:20 Last Admin: 03/29/19 16:39 Dose: 999 mls/hr Sodium Chloride (Normal Saline) 500 mls [facility] Last Admin: 03/30/19 04:53 Dose: 999 mls/hr Magnesium Sulfate 2 gm/ Premix 50 mls @ 50 mls/hr IV ONETIME ONE Stop: 03/30/19 09:52 Last Admin: 03/30/19 09:47 Dose: 50 mls/hr Sodium Chloride (Normal Saline) 1,000 mls @ 999 mls/hr IV .BOLUS ONE Stop: 03/30/19 09:59 Last Admin: 03/30/19 10:37 Dose: 999 mls/hr Ketorolac Tromethamine (Toradol) 30 mg IVPUSH ONETIME ONE Stop: 03/29/19 12:36 Last Admin: 03/29/19 13:11 Dose: 30 mg Ondansetron HCl (Zofran) 4 mg IVPUSH ONETIME ONE Stop: 03/29/19 12:36 Last Admin: 03/29/19 13:11 Dose: Not Given Ondansetron HCl (Zofran Odt) 4 mg PO Q6H PRN PRN Reason: nausea, able to take PO Sodium Phosphate (Neutra-Phos) 250 mg PO ONETIME ONE Stop: 03/30/19 08:54 Last Admin: 03/30/19 09:59 Dose: 250 mg - Exam General: Alert, Oriented, Cooperative, No Acute Distress Lungs: Clear to Auscultation, Normal Respiratory Effort Cardiovascular: Regular Rate, Regular Rhythm GI/Abdominal Exam: Normal Bowel Sounds, Soft, Non-Tender Extremities: Normal Inspection, Normal Range of Motion Psy/Mental Status: Alert, Normal Affect, Normal Mood - Problem List & Annotations (1) Acute pyelonephritis SNOMED Code(s): 38170481 Code(s): N10 - ACUTE PYELONEPHRITIS Status: Acute Current Visit: Yes - Problem List Review Problem List Initiated/Reviewed/Updated: Yes - My Orders Last 24 Hours: My Active Orders 03/31/19 08:02 Phosphorus #1 [Neutra-Phos] 250 mg PO QID 03/31/19 09:00 Potassium Chloride [Klor-Con M20] 40 meq PO BID@0900,1200 - Plan Plan:: This 28 year old female admitted with acute pyelonephritis 1) Acute pyelonephritis:Improving, BC negative. No fevers overnight. UC returns with meyers sensitive E coli. Continue Rocephin. Advance diet, would like to go home today if no fevers for 24hrs. VTE prophylaxis: Heparin. Dispo: later today potentially.
[2019-03-31] MEDS: Phosphorus #1 250 MG Tab PO SCH ×4 (08:39→23:28)
[2019-03-31] MEDS: Potassium Chloride 20 MEQ Tab.ER PO SCH ×2 (08:39→11:52)
[2019-03-31] MEDS: cefTRIAXone 1 GM in Premix Bag 1 BAG IV SCH (09:37)
[2019-03-31] MEDS ORDERED: Loperamide 2 MG Cap PO ONE (12:54)
[2019-03-31] MEDS: Acidophilus with Citrus Pectin Tab PO SCH (13:08)
[2019-03-31] MEDS ORDERED: valACYclovir 500 MG Tab PO PRN ×2 (15:09→15:12)
[2019-04-01] MEDS: Phosphorus #1 250 MG Tab PO SCH (05:34)
[2019-04-01] MEDS: Sodium Chloride 0.9% 1,000 ML IV SCH (05:35)
[2019-04-01 06:57] LABS: BLOOD UREA NITROGEN,BUN 3 mg/dL (7.0-18.0); CARBON DIOXIDE,CO2 22.9 mmol/L (21.0-32.0); CHLORIDE,CL 107 mmol/L (98-107); GLUCOSE RANDOM 97 mg/dL (74-106); POTASSIUM,K 3.7 mmol/L (3.5-5.1); SODIUM,NA 141 mmol/L (136-145)
[2019-04-01] MEDS: Heparin Sodium 5,000 Units/ML Vial SUBCUT SCH (08:24)
[2019-04-01] MEDS: Acidophilus with Citrus Pectin Tab PO SCH (08:26)
--- NOTE | 2019-04-01 09:39 | PCM.DCSUM1 ---
Discharge Summary - Hospital Course Brief History: Patient is a 28-year-old female presents to the ED today with c/ o nausea, vomiting, and fevers since last night. Patient checked her temp last night and the max she recorded was 103. Patient took Tylenol and her fever improved but through out the nigh she felt chills and some urinary urgency and frequency along with diaphoresis. [facility] states that she just moved to [place] from [place]. States she had infection of her kidneys in 2017 but was not admitted to hospital at that time.Patient denies chest pain, shortness of breath, or cough. Denies headache, neck stiff ness, change in vision, syncope , or near syncope. Denies dysuria. Has not noted any blood in urine or stool. In the ER patient was found to have elevated white count and was tachycardiac as well. Lactate was not elevated. IV fluids and IV antibiotics were administered. Patient underwent CT abdomen which showed findings suggestible of Acute pyelonephritics. Patient was admitted for management of Acute Pyelonephritis. Diagnosis: Stroke: No - Discharge Data Discharge Date: 04/01/19 Discharge Disposition: Home, Self-Care 01 Condition: Stable - Referral to Home Health Primary Care Physician: PCP None - Discharge Diagnosis/Problem(s) (1) Acute pyelonephritis SNOMED Code(s): 98969400 ICD Code: N10 - ACUTE PYELONEPHRITIS Status: Acute Current Visit: Yes - Patient Instructions Diet: Regular Diet as Tolerated, Drink 8-10+ Glasses/Day Activity: No Strenuous Activities, Rest and Relax Today Showering/Bathing: May Shower Notify Provider of: Fever, Increased Pain, Swelling and Redness, Drainage, Nausea and/or Vomiting - Discharge Plan *PRESCRIPTION DRUG MONITORING PROGRAM REVIEWED*: Not Applicable *COPY OF PRESCRIPTION DRUG MONITORING REPORT IN PATIENT MAXX: Not Applicable Prescriptions/Med Rec: Levofloxacin [Levaquin] 750 mg PO DAILY #6 tablet Home Medications: Home Meds Albuterol Sulfate [Albuterol Sulfate Hfa] 2 puff INH DAILY PRN 03/29/19 [History ] Acetaminophen [Tylenol] 650 mg PO Q4H PRN tablet 04/01/19 [Rx] Levofloxacin [Levaquin] 750 mg PO DAILY #6 tablet 04/01/19 [Rx] Referrals: [facility] [Outside] Umberto Griffiths MD [Resident] - 04/09/19 3:00 pm - Discharge Summary/Plan Comment DC Time >30 min.: No Discharge Summary/Plan Comment: Admitting Diagnoses: Acute peylonephritis Sepsis Discharge Diagnoses: Acute pyelonephritis- meyers sensitive Lara Meyer was admitted secondary to acute pyelonephritis, she was treated with IV fluid resuscitation due to sepsis and given Rocephin for pyelonephritis. She slowly improved during hospitalization, leukocytosis resolved today. US returned with E coli, meyers sensitive, she remained on Rocephin. She was noted to have some diarrhea during stay, but Cdiff negative. she was given some Imodium and probiotics. She noted to develop cold sore to R lower oral labia, denied medication for this. She is feeling much better today and has been afebrile for over 24 hours. SHe will be discharged home today, will continue Levaquin 750 mg for 6 more days, 10 day total treatment due to sepsis and acute pyelonephritis. She will have follow up with PCP in 1 week to insure she continues to improve, counseled on when she should seek care, such as fevers return, pain or urinary symptoms. She and verbalized agreement. - General Info Date of Service: 04/01/19 Admission Dx/Problem (Free Text: Admission Diagnosis/Problem Admission Diagnosis/Problem Acute pyelonephritis Subjective Update: Feeling improved today, eating and drinking well. NO fevers. No further flank pain or abdominal pain. Diarrhea improved. eager to go home. - Review of Systems General: Reports: No Symptoms. Denies: Weakness, Fatigue HEENT: Reports: No Symptoms Pulmonary: Reports: No Symptoms. Denies: Shortness of Breath Cardiovascular: Reports: No Symptoms. Denies: Chest Pain Gastrointestinal: Reports: No Symptoms. Denies: Abdominal Pain, Nausea, Vomiting Neurological: Reports: No Symptoms Psychiatric: Reports: No Symptoms - Patient Data Vitals - Most Recent: Last Vital Signs Temp 97.8 F 04/01/19 07:00 Pulse 84 04/01/19 04:00 Resp 16 04/01/19 07:00 BP 125/89 04/01/19 07:00 Pulse Ox 98 04/01/19 07:00 Weight - Most Recent: 72.575 kg I&O - Last 24 hours: Intake & Output 03/31/19 04/01/19 04/01/19 22:59 06:59 14:59 Intake Total 3506 2198 Output Total 3500 1500 Balance 6 698 Lab Results - Last 24 hrs: Laboratory Results - last 24 hr 03/31/19 04/01/19 04/01/19 Range/Units 06:40 05:43 05:59 WBC 8.71 (4.0-11.0) K/uL RBC 3.77 L (4.30-5.90) M/uL Hgb 11.2 L (12.0-16.0) g/dL Hct 33.6 L (36.0-46.0) % MCV 89.1 (80.0-98.0) fL MCH 29.7 (27.0-32.0) pg MCHC 33.3 (31.0-37.0) g/dL RDW Std Deviation 43.7 (28.0-62.0) fl RDW Coeff of Trace 13 (11.0-15.0) % Plt Count 245 (150-400) K/uL MPV 9.50 (7.40-12.00) fL Neut % (Auto) 73.2 (48.0-80.0) % Lymph % (Auto) 15.7 L (16.0-40.0) % Runnels % (Auto) 10.8 (0.0-15.0) % Eos % (Auto) 0.2 (0.0-7.0) % Baso % (Auto) 0.1 (0.0-1.5) % Neut # (Auto) 6.4 H (1.4-5.7) K/uL Lymph # (Auto) 1.4 (0.6-2.4) K/uL Runnels # (Auto) 0.9 H (0.0-0.8) K/uL Eos # (Auto) 0.0 (0.0-0.7) K/uL Baso # (Auto) 0.0 (0.0-0.1) K/uL Nucleated RBC % 0.0 /100WBC Nucleated RBCs # 0 K/uL Sodium (136-145) mmol/L Potassium (3.5-5.1) mmol/L Chloride (98-107) mmol/L Carbon Dioxide (21.0-32.0) mmol/L BUN (7.0-18.0) mg/dL Creatinine (0.6-1.0) mg/dL Est Cr Clr Drug Dosing mL/min Estimated GFR (MDRD) ml/min Glucose (74-106) mg/dL POC Glucose 94 84 (60-110) mg/dL Calcium (8.5-10.1) mg/dL Phosphorus (2.6-4.7) mg/dL 04/01/19 Range/Units 05:59 WBC (4.0-11.0) K/uL RBC (4.30-5.90) M/uL Hgb (12.0-16.0) g/dL Hct (36.0-46.0) % MCV (80.0-98.0) fL MCH (27.0-32.0) pg MCHC (31.0-37.0) g/dL RDW Std Deviation (28.0-62.0) fl RDW Coeff of Trace (11.0-15.0) % Plt Count (150-400) K/uL MPV (7.40-12.00) fL Neut % (Auto) (48.0-80.0) % Lymph % (Auto) (16.0-40.0) % Runnels % (Auto) (0.0-15.0) % Eos % (Auto) (0.0-7.0) % Baso % (Auto) (0.0-1.5) % Neut # (Auto) (1.4-5.7) K/uL Lymph # (Auto) (0.6-2.4) K/uL Runnels # (Auto) (0.0-0.8) K/uL Eos # (Auto) (0.0-0.7) K/uL Baso # (Auto) (0.0-0.1) K/uL Nucleated RBC % /100WBC Nucleated RBCs # K/uL Sodium 141 (136-145) mmol/L Potassium 3.7 (3.5-5.1) mmol/L Chloride 107 (98-107) mmol/L Carbon Dioxide 22.9 (21.0-32.0) mmol/L BUN 3 L (7.0-18.0) mg/dL Creatinine 0.5 L (0.6-1.0) mg/dL Est Cr Clr Drug Dosing 165.81 mL/min Estimated GFR (MDRD) > 60.0 ml/min Glucose 97 (74-106) mg/dL POC Glucose (60-110) mg/dL Calcium 8.3 L (8.5-10.1) mg/dL Phosphorus 2.6 (2.6-4.7) mg/dL RAMÍREZ Results - Last 24 hrs: Microbiology 03/31/19 09:52 Clostridium difficile Toxin A & B - Final Stool / Feces Negative for C.Diff Toxin/AG REFERENCE RANGE: NEGATIVE 03/29/19 12:30 Quick Strep Confirmation Culture - Final Throat NO GROUP A STREP ISOLATED REFERENCE RANGE: NEGATIVE Group A Streptococcus Rapid Screen - Final NEGATIVE STREP A SCREEN REFERENCE RANGE: NEGATIVE 03/29/19 12:20 Urine Culture - Final Urine, Clean Catch Escherichia Coli Normal Urogenital Alexia Med Orders - Current: Current Medications Acetaminophen (Tylenol) 650 mg PO Q4H PRN PRN Reason: Pain (Mild 1-3)/fever Last Admin: 03/31/19 23:35 Dose: 650 mg Acidophilus/Pectin (Acidophilus/Pectin, [place]) 1 tab PO DAILY [facility] Last Admin: 04/01/19 08:26 Dose: 1 tab Albuterol/Ipratropium (Duoneb 3.0-0.5 Mg/3 Ml) 3 ml NEB Q4HRRT PRN PRN Reason: Shortness Of Breath/wheezing Heparin Sodium (Porcine) (Heparin Sodium) 5,000 units SUBCUT Q8H [facility] Last Admin: 04/01/19 08:24 Dose: 5,000 units Ceftriaxone Sodium/Dextrose 1 (gm/ Premix) 50 mls @ 100 mls/hr IV Q24H [facility] Last Admin: 03/31/19 09:37 Dose: 100 mls/hr Sodium Chloride (Normal Saline) 1,000 mls @ 75 mls/hr IV ASDIRECTED [facility] Last Admin: 04/01/19 05:35 Dose: 75 mls/hr Ondansetron HCl (Zofran) 4 mg IVPUSH Q6H PRN PRN Reason: Nausea/Vomiting Last Admin: 03/31/19 04:00 Dose: 4 mg Sodium Phosphate (Neutra-Phos) 250 mg PO QID [facility] Last Admin: 04/01/19 05:34 Dose: 250 mg Valacyclovir HCl (Valtrex) 2,000 mg PO ONETIME PRN PRN Reason: cold sore Discontinued Medications Sodium Chloride (Normal Saline) 1,000 mls @ 999 mls/hr IV BOLUS ONE Stop: 03/29/19 13:35 Last Admin: 03/29/19 13:11 Dose: 999 mls/hr Ceftriaxone Sodium/Dextrose 1 (gm/ Premix) 50 mls @ 100 mls/hr IV ONETIME ONE Stop: 03/29/19 13:30 Last Admin: 03/29/19 13:36 Dose: 100 mls/hr Sodium Chloride (Normal Saline) 1,000 mls @ 125 [facility] Last Admin: 03/30/19 01:36 Dose: 125 mls/hr Sodium Chloride (Normal Saline) 1,000 mls @ 999 mls/hr IV .BOLUS ONE Stop: 03/29/19 17:20 Last Admin: 03/29/19 16:39 Dose: 999 mls/hr Sodium Chloride (Normal Saline) 500 mls @ 999 mls[facility]hr [facility] Last Admin: 03/30/19 04:53 Dose: 999 mls/hr Sodium Chloride (Normal Saline) 1,000 mls @ 125 mls[facility]hr [facility] Last Admin: 03/31/19 07:53 Dose: 125 mls/hr Magnesium Sulfate 2 gm/ Premix 50 mls @ 50 mls/hr IV ONETIME ONE Stop: 03/30/19 09:52 Last Admin: 03/30/19 09:47 Dose: 50 mls/hr Sodium Chloride (Normal Saline) 1,000 mls @ 999 mls/hr IV .BOLUS ONE Stop: 03/30/19 09:59 Last Admin: 03/30/19 10:37 Dose: 999 mls/hr Ketorolac Tromethamine (Toradol) 30 mg IVPUSH ONETIME ONE Stop: 03/29/19 12:36 Last Admin: 03/29/19 13:11 Dose: 30 mg Loperamide HCl (Imodium) 4 mg PO ONETIME ONE Stop: 03/31/19 12:55 Last Admin: 03/31/19 13:08 Dose: 4 mg Ondansetron HCl (Zofran) 4 mg IVPUSH ONETIME ONE Stop: 03/29/19 12:36 Last Admin: 03/29/19 13:11 Dose: Not Given Ondansetron HCl (Zofran Odt) 4 mg PO Q6H PRN PRN Reason: nausea, able to take PO Potassium Chloride (Klor-Con M20) 40 meq PO BID@0900,1200 JOSE Stop: 03/31/19 12:01 Last Admin: 03/31/19 11:52 Dose: 40 meq Sodium Phosphate (Neutra-Phos) 250 mg PO ONETIME ONE Stop: 03/30/19 08:54 Last Admin: 03/30/19 09:59 Dose: 250 mg Valacyclovir HCl (Valtrex) 1,000 mg PO ONETIME PRN PRN Reason: cold sore
[2019-04-01] MEDS: cefTRIAXone 1 GM in Premix Bag 1 BAG IV SCH (09:49)
== END 2019-04-01 12:10 | disposition home or self-care (01) | DRG 720 ==
LOC: MW.ED 12:08 → MW.MS 15:24 → OBSVTOIN 15:53
PROVIDERS: ADMIT Internal Medicine Endocrinology, Diabetes & Metabolism; ATTEND Student in an Organized Health Care Education/Training Program
DX: A41.9 Sepsis, unspecified organism (principal); N10 Acute pyelonephritis; B96.20 Unspecified Escherichia coli [E. coli] as the cause of diseases classified elsewhere; Z79.899 Other long term (current) drug therapy
CPT/HCPCS: 36415; 71045; 71045-26; 74176; 74176-26; 80048; 80053; 81001; 81025; 82962; 83036; 83605; 83735; 84100; 85025; 87040; 87081; 87086; 87088; 87186; 87324; 87804; 87880-QW; 93005; 96365; 96375; 99284; 99285-25; A9270-GY; J0696; J1644; J1885; J2405; J3475; J7040

== ENCOUNTER 2021-03-28 08:10 | Emergency (ER) | payer SELFPAY ==
[2021-03-28] MEDS ORDERED: Acetaminophen 500 MG Tab PO ONE (08:26)
--- NOTE | 2021-03-28 08:48 | EDM.PDOC ---
ED HPI GENERAL MEDICAL PROBLEM - General Chief Complaint: Lower Extremity Injury/Pain Stated Complaint: TRIPPED AND R FOOT/ANKLE INFLAMMED Time Seen by Provider: 03/28/21 08:35 - History of Present Illness INITIAL COMMENTS - FREE TEXT/NARRATIVE: CHIEF COMPLAINT(S): Right foot and ankle injury HISTORY OF PRESENT ILLNESS: This is a 29-year-old woman without any significant past medical history who comes to the emergency department with a chief complaint of right foot and ankle injury. The patient states that she was walking outside to say goodbye to her and children. She states that she tripped over a cord causing her to fall onto her right foot. She states that she is currently experiencing 10 out of 10 pain along the right side of her foot. She denies any radiation of this pain but states that she does feel some tingling in her fourth and fifth toes on her right foot. She states that any movement seems to exacerbate the pain. She describes the pain as achy and sharp. There are no relieving factors. She has not yet tried any pain medication. She denies any other pain or injury. REVIEW OF SYSTEMS: Cardiovascular: Denies chest pain Respiratory: Denies shortness of breath Skin:Denies a rash MSK: Positive for right foot pain Neurological: Positive for tingling to right fourth and fifth toe on the right foot PAST MEDICAL HISTORY: As per history of present illness and as reviewed below ot herwise noncontributory. SURGICAL HISTORY: As per history of present illness and as reviewed below otherwise noncontributory. SOCIAL HISTORY: As per history of present illness and as reviewed below otherwise noncontributory. FAMILY HISTORY: As per history of present illness and as reviewed below otherwise noncontributory. EXAMINATION OF ORGAN SYSTEMS/BODY AREAS: Constitutional: Blood pressure is 204/112, heart rate 96, respiratory rate 18 with an oxygen saturation 98% on room air. Temperature 36.6 General: Young woman who appears to be in a moderate amount of pain Psychiatric: Appropriate mood and affect. Eyes: No scleral icterus or conjunctival erythema Cardiovascular: Regular, rate, and rhythm. No gallops, murmurs, or rubs. Bilateral upper extremity pulses symmetric and intact. No peripheral edema. No JVD. Bilateral DP and PT pulses are symmetric and intact. Capillary refill of the distal right lower extremity is intact and less than 2 seconds Respiratory: Lungs clear to auscultation bilaterally. No wheezes, rales, or rhonchi. Musculoskeletal: Decreased range of motion secondary to pain. There is no medial or lateral malleoli or tenderness of the right ankle. There is pain at the base of the fifth metatarsal with some swelling. Skin: No lesions or abrasions. Neurological: Alert, GCS 15 distal sensation is intact MEDICAL DECISION MAKING AND COURSE IN THE ED WITH INTERPRETATION/REVIEW OF DIAGNOSTIC STUDIES: This is a 22-year-old woman without any significant past medical history who comes to the emergency department with right foot and ankle injury with some swelling and pain near the base of the fifth metatarsal. The patient is requesting Tylenol and nothing stronger therefore we will provide the patient with 1 g of Tylenol. The patient is hypertensive however I do believe this is secondary to her pain. We will reassess. Will obtain a right foot and right ankle x-ray. The radiological images were viewed by myself along with reading the report from the radiologist. Right ankle x-ray does not reveal any fracture or dislocation. Right foot x-ray reveals a nondisplaced fracture through the base of the fifth metatarsal with associated soft tissue swelling. After imaging I did discuss the results with the patient. I discussed at this time he would like to placed a posterior mold splint. She was amenable to this plan. I did discuss that she should not put any weight on this extremity and discussed pain management at home. In addition I discussed that she does follow-up with orthopedics. She was amenable to this plan and had no further questions. Post splint placement examination: Capillary refill of the distal right lower extremity is intact, sensation is intact. Patient is able to move all of her toes comfortably. DISPOSITION: The patient was discharged home in stable condition. The patient will follow up with orthopedics within 5 to 7 days CONDITION: Fair PROCEDURES: None FINAL IMPRESSION(S)/DIAGNOSES: 1. Acute right base of the fifth metatarsal nondisplaced fracture status post splint DME: Crutches Indication: Nondisplaced fracture of the fifth metatarsal Benefit: Nonweightbearing Duration: Until follow-up with orthopedics Stephen Toure M.D.. right lateral side of foot Pain Score (Numeric/FACES): 10 - Related Data Allergies Allergy/AdvReac Type Severity Reaction Status Date / Time No Known Allergies Allergy Verified 03/28/21 08:33 Home Meds: Home Meds Albuterol Sulfate [Albuterol Sulfate Hfa] 2 puff INH DAILY PRN 03/29/19 [History] Acetaminophen [Tylenol] 650 mg PO Q4H PRN tablet 04/01/19 [Rx] Hydrocodone/Acetaminophen [HYDROcodone-Acetaminophen 5-325 MG] 1 each PO Q6H PRN #10 tab 03/28/21 [Rx] Past Medical History - Past Health History Medical/Surgical History: Denies Medical/Surgical History HEENT History: Reports: None Cardiovascular History: Reports: None Respiratory History: Reports: Asthma Gastrointestinal History: Reports: None Genitourinary History: Reports: UTI, Recurrent 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 PROGRAM History: Reports: Polycystic Ovaries Musculoskeletal History: Reports: None Neurological History: Reports: None Psychiatric History: Reports: Anxiety Endocrine/Metabolic History: Reports: None Hematologic History: Reports: None Immunologic History: Reports: None Oncologic (Cancer) History: Reports: None Dermatologic History: Reports: Eczema - Infectious Disease History Infectious Disease History: Reports: Chicken Pox - Past Surgical History Head Surgeries/Procedures: Reports: None Social & Family History - Family History Family Medical History: No Pertinent Family History - Tobacco Use Tobacco Use Status *Q: Never Tobacco User Second Hand Smoke Exposure: No - Caffeine Use Caffeine Use: Reports: None - Recreational Drug Use Recreational Drug Use: No Review of Systems - Review of Systems Review Of Systems: See Below ED EXAM, GENERAL - Physical Exam Exam: See Below Course - Vital Signs Last Recorded V/S: Last Vital Signs Temp 36.8 C 03/28/21 09:18 Pulse 84 03/28/21 09:18 Resp 18 03/28/21 09:18 BP 148/99 H 03/28/21 09:18 Pulse Ox 98 03/28/21 09:18 - Orders/Labs/Meds Meds: Medications Discontinued Medications Generic Name Dose Route Start Last Admin Trade Name Freq PRN Reason Stop Dose Admin Acetaminophen 1,000 mg 03/28/21 08:26 03/28/21 08:35 Acetaminophen 500 Mg Tab PO 03/28/21 08:27 1,000 mg ONETIME ONE Administration Departure - Departure Time of Disposition: 09:03 Disposition: Home, Self-Care 01 Condition: Fair Clinical Impression: Gomez fracture - Discharge Information *PRESCRIPTION DRUG MONITORING PROGRAM REVIEWED*: No *COPY OF PRESCRIPTION DRUG MONITORING REPORT IN PATIENT MAXX: No Prescriptions: Hydrocodone/Acetaminophen [HYDROcodone-Acetaminophen 5-325 MG] 1 each PO Q6H PRN #10 tab PRN Reason: Pain (Severe 7-10) Instructions: Metatarsal Fracture Referrals: PCP,None [Primary Care Provider] - Forms: ED Department Discharge Additional Instructions: You were evaluated today on an emergent basis. At this time you did have evidence of a fracture of your right foot. We did place a splint. I would like you to keep this in place until you follow-up with orthopedics. Please do not place any weight on this foot. I recommend that you use Tylenol and Motrin as described below and keep the area elevated at the level of your heart and ice it 20 minutes 4 times a day. As discussed if you have any worsening pain, worsening swelling, cannot feel your toes I would like you to return to the emergency department. Follow-up with orthopedics within 5 to 7 days Please use: Tylenol 500mg every 6 hours (DO NOT TAKE MORE THAN 4000mg in 1 day) Ibuprofen 400mg every 6 hours (Take with food as it can cause ulcers, GI upset) *PLEASE REMEMBER THAT NORCO ALSO CONTAINS TYLENOL. Example schedule: 8:00 AM (Tylenol 500) 11:00 AM (Ibuprofen 400mg) 2:00 PM (Tylenol 500) 5:00 PM (Ibuprofen 400mg) In addition to Tylenol and Motrin you may use over the counter creams such as Voltaren Cream or Lidocaine Cream (Lidoderm) as needed 4 times a day for symptomatic relief. Ice the area 20 minutes 4 times per day [facility] [address] [place] [address] The patient is informed of any results of their evaluation and diagnostic workup and all questions are answered. They are given discharge instructions and return precautions. The patient is stable for discharge. The patient states they understand and agree with the plan and that they will return if their symptoms get worse or if they have any new concerns. The following information is given to patients seen in the emergency department who are being discharged to home. This information is to outline your options for follow-up care. We provide all patients seen in our emergency department with a follow-up referral. The need for follow-up, as well as the timing and circumstances, are variable depending upon the specifics of your emergency department visit. If you don't have a primary care physician on staff, we will provide you with a referral. We always advise you to contact your personal physician following an emergency department visit to inform them of the circumstance of the visit and for follow-up with them and/or the need for any referrals to a consulting specialist. The emergency department will also refer you to a specialist when appropriate. This referral assures that you have the opportunity for follow-up care with a specialist. All of these measure are taken in an effort to provide you with optimal care, which includes your follow-up. Under all circumstances we always encourage you to contact your private physician who remains a resource for coordinating your care. When calling for follow-up care, please make the office aware that this follow-up is from your recent emergency room visit. If for any reason you are refused follow-up, please contact the [facility] Emergency Department at and asked to speak to the emergency department charge nurse. Sepsis Event Note (ED) - Evaluation Sepsis Screening Result: No Definite Risk
--- NOTE | 2021-03-28 08:49 | CR ---
Indication: Injury, pain Comparison: None available. Technique: AP, Lateral, and Oblique views right ankle were obtained Findings: There is no displaced fracture or dislocation. The ankle mortise is symmetrical. The talar dome is smooth and intact. The joint spaces are otherwise grossly preserved. There is mild malleolar soft tissue swelling. Impression: Trace malleolar soft tissue swelling without evidence of displaced Dictated by Jacoby Cruz MD @ 03/28/2021 8:48:25 AM (Electronically Signed)
--- NOTE | 2021-03-28 08:52 | CR ---
Indication: Injury, evaluate for fracture Comparison: None available. Technique: AP, Lateral, and Oblique views right foot were obtained Findings: There is demonstration of a nondisplaced fracture through the base of the 5th metatarsal. No other displaced injury is appreciated. The joint spaces are grossly preserved. There is mild hindfoot soft tissue swelling. Impression: Nondisplaced fracture through the base of the 5th metatarsal with associated soft tissue swelling. Dictated by Jacoby Cruz MD @ 03/28/2021 8:49:32 AM (Electronically Signed)
== END 2021-03-28 09:19 | disposition home or self-care (01) ==
LOC: MW.ED 08:10
DX: S92.354A Nondisplaced fracture of fifth metatarsal bone, right foot, initial encounter for closed fracture (principal); W01.0XXA Fall on same level from slipping, tripping and stumbling without subsequent striking against object, initial encounter
CPT/HCPCS: 29515; 73610; 73630; 99283; A9270

== ENCOUNTER 2021-05-23 08:54 | Emergency (ER) | payer SELFPAY ==
--- NOTE | 2021-05-23 09:36 | EDM.PDOC ---
ED HPI GENERAL MEDICAL PROBLEM - General Chief Complaint: Genitourinary Problem Stated Complaint: BLADDER INFECTION Time Seen by Provider: 05/23/21 08:56 Source of Information: Reports: Patient History Limitations: Reports: No Limitations - History of Present Illness INITIAL COMMENTS - FREE TEXT/NARRATIVE: 30-year-old female past medical history pyelonephritis presents for concern for UTI. Patient notes that 2 days ago she began to experience increased urinary frequency with a cloudy, foul-smelling urine. Symptoms seem to improve yesterday morning, however, in the evening she began to have recurrence of symptoms and now notes a burning sensation when finishing urination. She also noticed pink-tinged urine and a spot of blood when wiping. She does not believe that she is . She denies nausea or vomiting. She denies abdominal pain. She denies back pain. She denies fevers. She notes that few years ago she had similar symptoms which evolved into a pyelonephritis requiring hospitalization. Bladder Pain Score (Numeric/FACES): 8 - Related Data Allergies Allergy/AdvReac Type Severity Reaction Status Date / Time No Known Allergies Allergy Verified 05/23/21 08:58 Home Meds: Home Meds Acetaminophen [Tylenol] 650 mg PO Q4H PRN tablet 04/01/19 [Rx] Sulfamethoxazole/Trimethoprim [Bactrim Ds Tablet] 1 each PO BID 7 Days #14 tablet 05/23/21 [Rx] Past Medical History - Past Health History Medical/Surgical History: Denies Medical/Surgical History HEENT History: Reports: None Cardiovascular History: Reports: None Respiratory History: Reports: Asthma Gastrointestinal History: Reports: None Genitourinary History: Reports: UTI, Recurrent [employer] History: Reports: Polycystic Ovaries Musculoskeletal History: Reports: None Neurological History: Reports: None Psychiatric History: Reports: Anxiety Endocrine/Metabolic History: Reports: None Hematologic History: Reports: None Immunologic History: Reports: None Oncologic (Cancer) History: Reports: None Dermatologic History: Reports: Eczema - Infectious Disease History Infectious Disease History: Reports: Chicken Pox - Past Surgical History Head Surgeries/Procedures: Reports: None Social & Family History - Family History Family Medical History: No Pertinent Family History - Tobacco Use Tobacco Use Status *Q: Light Tobacco User Years of Tobacco use: 10 Packs/Tins Daily: 0.2 - Caffeine Use Caffeine Use: Reports: Coffee, Soda - Alcohol Use Days Per Week of Alcohol Use: 1 Number of Drinks Per Day: 2 Total Drinks Per Week: 2 - Recreational Drug Use Recreational Drug Use: No ED ROS GENERAL - Review of Systems Review Of Systems: Comprehensive ROS is negative, except as noted in HPI. ED EXAM, GENERAL - Physical Exam Exam: See Below Exam Limited By: No Limitations General Appearance: Alert, WD/WN, No Apparent Distress Ears: Hearing Grossly Normal Throat/Mouth: Normal Voice, No Airway Compromise Head: Atraumatic, Normocephalic Respiratory/Chest: No Respiratory Distress, Lungs Clear, Normal Breath Sounds, No Accessory Muscle Use Cardiovascular: Normal Peripheral Pulses, Regular Rate, Rhythm GI/Abdominal: Soft, Non-Tender Back Exam: No: CVA Tenderness (L), CVA Tenderness (R) Extremities: Normal Inspection Neurological: Alert, Normal Gait Psychiatric: Normal Affect, Normal Mood, Anxious Skin Exam: Warm, Dry, Intact, Normal Color Course - Vital Signs Last Recorded V/S: Last Vital Signs Temp 97.9 F 05/23/21 08:59 Pulse 104 H 05/23/21 08:59 Resp 16 05/23/21 08:59 BP 180/112 H 05/23/21 09:20 Pulse Ox 98 05/23/21 08:59 - Orders/Labs/Meds Labs: Laboratory Tests 05/23/21 05/23/21 Range/Units 09:20 09:20 Urine Color YELLOW Urine Appearance SLT CLOUDY Urine pH 8.0 (5.0-8.0) Ur Specific [place] 1.020 (1.001-1.035) Urine Protein 30 H (NEGATIVE) mg/dL Urine Glucose (UA) NEGATIVE (NEGATIVE) mg/dL Urine Ketones NEGATIVE (NEGATIVE) mg/dL Urine Occult Blood LARGE H (NEGATIVE) Urine Nitrite NEGATIVE (NEGATIVE) Urine Bilirubin NEGATIVE (NEGATIVE) Urine Urobilinogen 0.2 (<2.0) EU/dL Ur Leukocyte Esterase LARGE H (NEGATIVE) Urine RBC 70-80 (0-2/HPF) Urine WBC 30-40 (0-5/HPF) Ur Epithelial Cells FEW (NONE-FEW) Urine Bacteria FEW (NEGATIVE) Urine HCG, Qual NEGATIVE (NEGATIVE) - Re-Assessments/Exams Free Text/Narrative Re-Assessment/Exam: 05/23/21 09:35 Will check urinalysis and urine testing. Will chromosomal disorders counselor patient on hypertension. 05/23/21 09:42 Urine test is negative 05/23/21 09:50 Urinalysis reveals positive leukocyte esterase, positive blood, cell count reveals positive WBCs and positive RBCs. Considering patient's symptoms likely UTI with hematuria. Will discharge patient with antibiotics. Urine culture pending. Departure - Departure Time of Disposition: 09:50 Disposition: Home, Self-Care 01 Condition: Good Clinical Impression: UTI, Urinary tract infectious disease - Discharge Information Instructions: Urinary Tract Infection, Adult Referrals: PCP,None [Primary Care Provider] - Forms: ED Department Discharge Additional Instructions: Your urine study shows evidence of a urinary tract infection. Antibiotics were sent to [facility] which is located in [place]. If you develop one-sided back pain, fevers, vomiting these can all be signs of a kidney infection and you should be reassessed. Your blood pressure is also quite elevated. We typically do not make big decisions on hypertension in the emergency department as you are feeling ill right now and this could contribute to your elevated blood pressure. However, you should follow-up with your primary care physician regarding this. The following information is given to patients seen in the emergency department who are being discharged to home. This information is to outline your options for follow-up care. We provide all patients seen in our emergency department with a follow-up referral. The need for follow-up, as well as the timing and circumstances, are variable depending upon the specifics of your emergency department visit. If you don't have a primary care physician on staff, we will provide you with a referral. We always advise you to contact your personal physician following an emergency department visit to inform them of the circumstance of the visit and for follow-up with them and/or the need for any referrals to a consulting specialist. The emergency department will also refer you to a specialist when appropriate. This referral assures that you have the opportunity for follow-up care with a specialist. All of these measure are taken in an effort to provide you with optimal care, which includes your follow-up. Under all circumstances we always encourage you to contact your private physician who remains a resource for coordinating your care. When calling for follow-up care, please make the office aware that this follow-up is from your recent emergency room visit. If for any reason you are refused follow-up, please contact the [facility] Emergency Department at and asked to speak to the emergency department charge nurse. Please follow up with your primary care physician. If you do not have a primary care physician, see below: [facility] [address] [place] [address] [phone] [facility] [address] [place] [id number] [facility] [address] [place] [id number] Sepsis Event Note (ED) - Evaluation Sepsis Screening Result: No Definite Risk - Focused Exam Vital Signs: Vital Signs Temp Pulse Resp BP Pulse Ox 05/23/21 09:20 180/112 H 05/23/21 08:59 97.9 F 104 H 16 189/113 H 98
== END 2021-05-23 10:10 | disposition home or self-care (01) ==
LOC: MW.ED 08:54
DX: N39.0 Urinary tract infection, site not specified (principal); J45.909 Unspecified asthma, uncomplicated; Z72.0 Tobacco use
CPT/HCPCS: 81001; 81025; 99283